=== PATIENT | female | born 1960 | race Caucasian/White ===

== ENCOUNTER 2020-10-08 10:03 | Emergency (ER) | payer OTHER ==
[~2020-10-08] VITALS: Ht 165.1 cm; Wt 69.9 kg
[2020-10-08 10:38] LABS: BASO % 0.5 % (0.0-1.0); EOS # 0.2 10*3/uL (0.0-0.4); EOS % 2.5 % (1.0-4.0); HEMATOCRIT 39.5 % (37.0-47.0); LYMPH # 2.2 10*3/uL (1.3-4.4); LYMPH % 26.4 % (27.0-41.0); MEAN CORPUSCULAR HGB 27.1 pg (27.0-31.0); MEAN CORPUSCULAR HGB CONC 31.1 g/dl (33.0-37.0); MEAN PLATELET VOLUME 10.4 fl (9.6-12.3); MONO # 0.5 10*3/uL (0.1-1.0); MONO % 6.2 % (3.0-9.0); NEUT # 5.4 10*3/uL (2.3-7.9); NEUT % 64.2 % (47.0-73.0); PLATELET COUNT AUTOMATED 267 10*3/uL (130-400); RED BLOOD COUNT 4.54 10*6/uL (4.10-5.10); WHITE BLOOD COUNT 8.5 10*3/uL (4.8-10.8)
[2020-10-08 10:54] LABS: ALBUMIN 3.3 gm/dl (3.1-4.5); ALKALINE PHOSPHATASE 125 U/L (45-117); BUN 22 mg/dl (7-24); CHLORIDE 105 mmol/L (98-107); CREATININE 1.39 mg/dL (0.55-1.02); LIPASE 115 U/L (73-393); POTASSIUM 3.8 mmol/L (3.5-5.1); SGOT/AST 7 IU/L (3-35); SGPT/ALT 15 U/L (12-78); SODIUM 138 mmol/L (136-145); TOTAL PROTEIN 7.7 gm/dL (6.4-8.2); TROPONIN I < 0.015 ng/ml (<0.045)
[2020-10-08 10:59] LABS: ACT PARTIAL THROMBO TIME 27.2 SECONDS (20.0-32.1)
[2020-10-08 11:50] LABS: BILIRUBIN Negative (Negative); BLOOD Negative (Negative); CLARITY Cloudy (Clear); COLOR Dark Yellow (Yellow); GLUCOSE Negative (Negative); KETONE Trace (Negative); LEUKO ESTERASE Trace (Negative); NITRITE Negative (Negative); SPECIFIC GRAVITY 1.025 (1.001-1.030)
[2020-10-08 11:57] LABS: URINE AMPHETAMINES < 1000 (1000ng/ml); URINE BARBITURATES < 200 (200ng/ml); URINE BENZODIAZEPINES < 200 (200ng/ml); URINE CANNABINOIDS (THC) < 50 (50ng/ml); URINE COCAINE > 300 (300ng/ml); URINE METHADONE < 300 (300ng/ml); URINE OPIATES < 300 (300ng/ml)
[2020-10-08 11:58] LABS: URINE PHENCYCLIDINE < 25 (25ng/ml)
[2020-10-08 12:01] LABS: HYALINE CAST 21-30
[2020-10-08] MEDS ORDERED: KEPPRA750 MG PO (14:14)
[2020-10-08] MEDS ORDERED: SYNTHROID,LEV125 MCG PO (14:14)
[2020-10-08] MEDS ORDERED: SIMVASTATIN40 MG PO (14:15)
[2020-10-08] MEDS ORDERED: CYMBALTA20 M1 PO (14:17)
[2020-10-08] MEDS ORDERED: PROTONIX IV40 MG PO (14:18)
[2020-10-08] MEDS ORDERED: OSTERA TABLET1 EACH PO (14:19)
[2020-10-08] MEDS ORDERED: SPECIAL C 5001 EACH PO (14:20)
[2020-10-08] MEDS ORDERED: MOISTURIZING PO (14:21)
[2020-10-08] MEDS ORDERED: ANIMAL SHAPES1 EAC1 PO (14:22)
[2020-10-08] MEDS ORDERED: CLARITIN10 MG PO (14:23)
[2020-10-08] MEDS ORDERED: 'CLONIDINE0.1 MG PO (14:25)
[2020-10-08] MEDS ORDERED: ATARAX,VISTARIL50 MG PO (14:27)
== END 2020-10-08 15:56 | disposition home or self-care (01) ==
LOC: ED 10:03
PROVIDERS: Emergency Medicine
DX: F11.20 Opioid dependence, uncomplicated (principal); R41.0 Disorientation, unspecified; Z79.899 Other long term (current) drug therapy; Z88.8 Allergy status to other drugs, medicaments and biological substances; Z88.6 Allergy status to analgesic agent